=== PATIENT | male | born 1970 | race Caucasian/White ===

== ENCOUNTER 2023-07-28 15:10 | Inpatient (IN) | payer MEDICARE, MEDICAID, SELFPAY ==
[2023-07-28 16:06] VITALS: BP 122/78; PULSE 81; RESP 20; TEMP 36.6; O2SAT 98
[2023-07-28 16:07] VITALS: BMI 20.3
--- NOTE | 2023-07-28 16:58 | PC.NURSE ---
ADMIT NOTE PT WAS A DIRECT ADMIT FROM [facility]. PT WAS REPORTED TO HAVE STATED THAT HE WAS SUICIDAL AND DID NOT WANT TO FAIL ANOTHER SUICIDE ATTEMPT. UPON ADMIT TO THE NPU PT WAS AGITATED ABOUT HIS TRANSFER TO THIS FACILITY. PT STATED TO THIS NURSE THAT HE FELT LIKE A PRISONER PT INITIALLY WAS UNWILLING TO CONSENT TO HOSPITAL TREATMENT. STAFF WS ABLE TO SPEAK WITH PT AND EDUCATE PT ABOUT THE FACILITY. PT SIGNED HOSPITAL CONSENT FORM. PT CONTINUES TO BE AGITATED ABOUT HIS BEING IN CURRENT FACILITY. PT CURRENT NEEDS ARE MET AT THIS TIME.
--- NOTE | 2023-07-28 18:26 | PC.NURSE ---
ROOM SEARCHED BY STAFF NO CONTRABAND FOUND.
[2023-07-28 19:32] VITALS: RESP 16
--- NOTE | 2023-07-28 19:32 | PC.NURSE ---
pt refused vital signs.
[2023-07-29 06:00] VITALS: RESP 16
--- NOTE | 2023-07-29 06:09 | PC.NURSE ---
PT REFUSED VITALS DUE AT 0600. RESPIRATIONS WERE OBTAINED AT 16. WILL CONTINUE TO MONITOR.
[2023-07-29] MEDS: CLONazepam 0.5 mg Tablet PO (09:22)
[2023-07-29 14:00] VITALS: BP 110/78; BP 123/76; PULSE 82; PULSE 92; RESP 16; RESP 20; TEMP 36.6; TEMP 36.8; O2SAT 95; O2SAT 98
--- NOTE | 2023-07-29 17:02 | W.PM.NPUH&PS ---
Providers/Chief Complaint Admitting Physician: Miguelito Banegas MD Chief Complaint: SI HPI NPU History of Present Illness Lorne Le is a 52 year old male admitted voluntarily after first being evaluated in the emergency department at [facility] in [facility]. Patient was transferred to the neuropsychiatric unit at [facility] for further evaluation and treatment. Patient reports that he has been experiencing considerable stress over the past week with patient reporting that he was dealing with the of his [id number]. He reports that he had talked to his parents whom he lives with about going to a stress relief center and reports that in order to go there for a few days he would have to go to the emergency department. He states that when he got there he had described having suicidal thoughts but reports that they were in the past. He had denied having any thoughts of hurting himself currently although he had stated that in the past he had had drug overdoses. He reports that he has been diagnosed with bipolar disorder but states that he had been relatively stable by taking Klonopin routinely. He had endorsed having consumed some alcohol briefly but denied any thoughts of overdosing. He had reported that he had been more irritable over the past few days but denied any problems with racing thoughts or decreased need for sleep currently. He had reported a past history of racing thoughts but reported no significant history of sleep disturbance. He had denied any history of excess euphoria or spending sprees. He did report that the Klonopin switch from Xanax had been helpful but he reported that his anger had been more apparent over the past few months since the switch from Xanax. 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 He denied any changes in energy. He denied any feelings of hopelessness or worthlessness. He reported no difficulties currently with concentration. He denied any illicit drug use other than using marijuana for pain. Psychiatric history: Patient had reported several previous inpatient hospitalizations for bipolar 1 disorder diagnosed since the age of 22 per patient. He had reported previous medication trials on risperidone and Zyprexa but stated that he had more side effects with these medicines. He is currently not receiving any outpatient therapy and his current medication regimen is managed by his primary care physician. Medical history: History of benign prostatic enlargement, hypercholesterolemia Surgical history: Right wrist surgery in 2018. Allergies: No known drug allergies Drug and alcohol history: He had reported previous history of drug use but reports only using marijuana and reports no history of alcohol abuse. He had no prior history of substance abuse treatment as well. Current medications: Klonopin 0.5 mg twice a day, Ambien CR 6.25 mg at night. Legal history: None history: None Family psychiatric history: None reported Social history: Patient was raised in [place] by his mother and stepfather. He has some half siblings. He had reported that he currently lives with them. He had dropped out of school but earned his GED. He had denied any past history of sexual physical or emotional abuse. He had reported that his kids are grown and he was previously and is now . He states that he had previously worked in [place] and reports that he has not worked in several years as he is on disability for bipolar disorder. Meds NPU Home Medications Medication Instructions Recorded Confirmed Last Taken Type clonazepam 0.5 mg tablet 0.5 mg PO BID 07/28/23 07/28/23 Unknown History Allergies Allergy/AdvReac Type Severity Reaction Status Date / Time No Known Allergies Allergy Verified 07/29/23 09:23 Mental Status Exam MSE Comments: Patient is a casually dressed white male who appeared his stated age. He was friendly and cooperative on interview. He was alert and oriented to person place time and situation. His speech was normal in regards to rate rhythm and prosody. His mood was described as allright. His affect was mood congruent and slightly restricted. His thought process was linear logical and goal-directed. His thought content showed no evidence of active homicidal or suicidal ideation. He did not appear to be responding to internal stimuli. There is no clear evidence of delusional thinking. His attention span appeared fair. His insight was partial. His judgment was limited at this time. His impulse control remained guarded. His recent and remote memory appeared grossly intact. Vitals/I&O/Wt Last Vital Signs Temp 98 F 07/29/23 14:00 Pulse 92 07/29/23 14:00 Resp 20 H 07/29/23 14:00 BP 110/78 07/29/23 14:00 Pulse Ox 95 07/29/23 14:00 O2 Del Method Room Air 07/28/23 16:07 Weight last 48 hrs Weight 62.596 kg Weight 62.596 kg A&P Assessment and plan (1) Bipolar I disorder, most recent episode (or current) unspecified: Plan 52-year-old male reporting increased stress over the last week with some evidence of increased irritability but reporting no significant behavioral changes despite affidavit which had stated that the patient had made a suicidal ideation. Patient is denying suicidal ideation at this time. He will continue to be observed while remaining here while examining for depression/moe/psychosis. #1.? Engage patient in individual milieu and group therapy. #2?? Recommend sober living treatment at the highest level of care to which the patient is willing to commit #3??? CIWA for alcohol withdrawal #4?? TO-15 minute checks #5?? Will attempt to gather collateral information #6 Restart Klonopin with increase to 1mg bid. ? Involuntary Hold Information 96 Hour Hold: 96 Hour Involuntary Admission: No Attestations NPU Medical Necessity Statement*: Inpatient hospitalization is medically necessary and deemed to ?be ?the clinically appropriate intervention ?at this time.? We will monitor/initiate medications and make changes as indicated.? The patient will be in the hospital for over 2 midnights.? The patient?s likely length of stay 2-3 days. Coding Level of Care Code Acute Code for Chg Fwd Diagnoses Bipolar I disorder, most recent episode (or current) unspecified F31.9
[2023-07-29] MEDS: CLONazepam 0.5 mg Tablet 1 MG PO (18:18)
[2023-07-29 20:07] VITALS: BP 112/68; PULSE 76; RESP 16; TEMP 37.1; O2SAT 95
[2023-07-29] MEDS: hyDROXYzine 25 mg Capsule 50 MG PO (21:44)
[2023-07-29] MEDS: trazodone 50 mg Tablet PO (21:45)
[2023-07-30 06:00] VITALS: BP 119/70; PULSE 58; RESP 15; TEMP 36.6; O2SAT 98
[2023-07-30] MEDS: CLONazepam 0.5 mg Tablet 1 MG PO (08:07)
[2023-07-30 12:09] VITALS: BP 119/70; PULSE 58; RESP 15; TEMP 36.6; O2SAT 98
--- NOTE | 2023-07-30 12:19 | P.NPUDS_ITS ---
Diagnoses at Discharge Discharge Diagnosis (1) Bipolar I disorder, most recent episode (or current) unspecified: Status: Acute Reason for Visit Reason for Visit: SI Brief History: History of Present Illness Lorne Le is a 52 year old male admitted voluntarily after first being evaluated in the emergency department at [facility] in [facility]. Patient was transferred to the neuropsychiatric unit at [facility] for further evaluation and treatment. Patient reports that he has been experiencing considerable stress over the past week with patient reporting that he was dealing with the of his [id number]. He reports that he had talked to his parents whom he lives with about going to a stress relief center and reports that in order to go there for a few days he would have to go to the emergency department. He states that when he got there he had described having suicidal thoughts but reports that they were in the past. He had denied having any thoughts of hurting himself currently although he had stated that in the past he had had drug overdoses. He reports that he has been diagnosed with bipolar disorder but states that he had been relatively stable by taking Klonopin routinely. He had endorsed having consumed some alcohol briefly but denied any thoughts of overdosing. He had reported that he had been more irritable over the past few days but denied any problems with racing thoughts or decreased need for sleep currently. He had reported a past history of racing thoughts but reported no significant history of sleep disturbance. He had denied any history of excess euphoria or spending sprees. He did report that the Klonopin switch from Xanax had been helpful but he reported that his anger had been more apparent over the past few months since the switch from Xanax. 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 He denied any changes in energy. He denied any feelings of hopelessness or worthlessness. He reported no difficulties currently with concentration. He denied any illicit drug use other than using marijuana for pain. Psychiatric history: Patient had reported several previous inpatient hospitalizations for bipolar 1 disorder diagnosed since the age of 22 per patient. He had reported previous medication trials on risperidone and Zyprexa but stated that he had more side effects with these medicines. He is currently not receiving any outpatient therapy and his current medication regimen is managed by his primary care physician. Medical history: History of benign prostatic enlargement, hypercholesterolemia Surgical history: Right wrist surgery in 2018. Allergies: No known drug allergies Drug and alcohol history: He had reported previous history of drug use but reports only using marijuana and reports no history of alcohol abuse. He had no prior history of substance abuse treatment as well. Current medications: Klonopin 0.5 mg twice a day, Ambien CR 6.25 mg at night. Legal history: None history: None Family psychiatric history: None reported Social history: Patient was raised in [place] by his mother and stepfather. He has some half siblings. He had reported that he currently lives with them. He had dropped out of school but earned his GED. He had denied any past history of sexual physical or emotional abuse. He had reported that his kids are grown and he was previously and is now . He states that he had previously worked in [employer] and reports that he has not worked in several years as he is on disability for bipolar disorder. Hospital Course Hospital Course During the hospitalization, the patient had routine laboratory studies which were within normal limits except for a few outliers.? Additionally, there was a general medical evaluation which was also within normal limits and revealed no new acute processes.? At the time of discharge, lethality was denied and psychosis was resolving.? Mood and anxiety were well managed.? The patient endorsed a plan to avoid all drugs of abuse and follow up with the aftercare recommendations of the treatment team.? The patient was evaluated and deemed to be absent credible lethality and had achieved the maximum benefit from an inpatient hospitalization, and so was discharged. Klonopin was increased to target manic symptoms with improvement noted and discharge was clear. ? Involuntary Hold Information 96 Hour Hold: 96 Hour Involuntary Admission: No Mental Status Exam MSE Comments: Patient is a casually dressed white male who appeared his stated age. He was friendly and cooperative on interview. He was alert and oriented to person place time and situation. His speech was normal in regards to rate rhythm and prosody. His mood was described as great. His affect was mood congruent and euthymic. His thought process was linear, logical and goal-directed. His thought content showed no evidence of active homicidal or suicidal ideation. He did not appear to be responding to internal stimuli. There is no clear evidence of delusional thinking. His attention span appeared fair. His insight was fair. His judgment was adequate. His impulse control appeared fair. His recent and remote memory appeared grossly intact. Discharge Data Vitals: Last Vital Signs Temp 97.9 F 07/30/23 12:09 Pulse 58 L 07/30/23 12:09 Resp 15 07/30/23 12:09 BP 119/70 07/30/23 12:09 Pulse Ox 98 07/30/23 12:09 O2 Del Method Room Air 07/29/23 14:00 Discharge Plan Discharge Patient Disposition: Home Condition: Stable Prescriptions: New clonazepam 1 mg tablet 1 mg PO BID 30 Days Qty: 60 0RF Discontinued clonazepam 0.5 mg tablet 0.5 mg PO BID Discharge Orders: Discharge Order (Routine); Ordered 07/30/23 Ordered By: Miguelito Banegas Referrals: [facility] [Other] - 08/05/23 7:15 am (Psychiatry with Angi Tristan) Discharge Diet: Usual diet Discharge Activity: Resume usual activity Patient Instructions: Clonazepam (By mouth) (Klonopin), Bipolar Disorder (DC), Help Prevent Suicide (DC), Suicide Prevention (DC), Opioid Safety Discharge Attestations NPU Time Spent in Discharge Care*: less than 30 min Specific Discharge Activities: Specific discharge activities: educating patient, discussing with case consultant/social workers/dc planners and documenting/other paperwork Coding Level of Care Code Acute Code for Chg Fwd Diagnoses Bipolar I disorder, most recent episode (or current) unspecified F31.9
[2023-07-30 12:44] VITALS: BP 115/83; PULSE 103; RESP 16; O2SAT 97
[2023-07-30 13:53] VITALS: BP 115/83; PULSE 103; RESP 16; O2SAT 97
== END 2023-07-30 15:11 | disposition home or self-care (01) | DRG 885 ==
PROVIDERS: Admitting Provider Psychiatry & Neurology Psychiatry; Visit Provider Psychiatry & Neurology Psychiatry
DX: F31.9 Bipolar disorder, unspecified (principal)
CPT/HCPCS: 97165